=== PATIENT | male | born 1945 | race Caucasian/White ===

== ENCOUNTER → 2025-06-26 10:26 | Outpatient (REF) | payer OTHER, SELFPAY | LOC: RAD 10:26 | PROVIDERS: ATTENDING PHYSICIAN Physician Assistant; FAMILY PHYSICIAN Internal Medicine | DX: M25.572 Pain in left ankle and joints of left foot (principal) | CPT/HCPCS: 73610 ==

== ENCOUNTER → 2025-06-29 14:25 | Outpatient (REF) | payer OTHER, SELFPAY ==
[2025-06-29 16:48] LABS: Uric Acid 7.1 mg/dl (3.5-8.5)
== END ==
LOC: REG 14:25
PROVIDERS: ATTENDING PHYSICIAN Nurse Practitioner Family; FAMILY PHYSICIAN Internal Medicine
DX: M25.572 Pain in left ankle and joints of left foot (principal)
CPT/HCPCS: 36415; 84550